=== PATIENT | male | born 1955 | race Two or more races ===

== ENCOUNTER 2020-01-28 22:03 | Inpatient (IN) | payer BC, MEDICAID ==
[~2020-01-28] VITALS: Ht 182.9 cm; Wt 107.9 kg
[~2020-01-28 22:03] MED LIST: AMIO200T33; ESCI20TA OR; IBUP800T24 OR; LOSA-69; METF-370 OR; METO25TA5; SIMV80TA73 OR; TIMO0.5S32 OP
[2020-01-28] MEDS ORDERED: IOHEXOL 350 MG/ML 100ML IJ ONE ×2 (22:37→22:38)
[2020-01-28] MEDS ORDERED: LIDOCAINE 2%HCL (LOCAL ANESTH.) INJ 20ML MDV ONE (22:37)
[2020-01-28] MEDS ORDERED: ANGIOMAX 250 MG VIAL IV ONE ×2 (22:46→23:53)
[2020-01-28] MEDS ORDERED: HEPARIN SODIUM (PORCINE) 5000 UNITS/ML 1ML VIAL SC ONE (22:46)
[2020-01-28] MEDS ORDERED: MIDAZOLAM HCL 1MG/1ML-2 ML VIAL IV ONE (22:47)
[2020-01-28] MEDS ORDERED: SODIUM CHLORIDE 0.9% IV ONE ×2 (22:47→23:53)
[2020-01-28] MEDS ORDERED: fentaNYL CITRATE 100 MCG/2 ML VL IV ONE (22:47)
[2020-01-28] MEDS ORDERED: niCARdipine 25 MG/10 ML VIAL IV ONE (23:30)
[2020-01-28] MEDS ORDERED: EPTIFIBATIDE INJ (2MG/ML) 10ML VIAL IV ONE (23:41)
[2020-01-28] MEDS ORDERED: ADENOSINE 12 MG/4 ML INJ IV ONE (23:48)
[2020-01-28] MEDS ORDERED: TICAGRELOR 90 MG TAB PO ONE (23:53)
[2020-01-29] VITALS (12 sets, daily range): BP systolic 100–134; BP diastolic 60–79
[2020-01-29] MEDS ORDERED: NITROGLYCERIN 0.4 MG SL TAB SL PRN (01:00)
[2020-01-29] MEDS ORDERED: DEXTROSE (50%) 50ML SYRG IV PRN (01:00)
[2020-01-29] MEDS ORDERED: ACETAMINOPHEN 500 MG TAB PO PRN (01:00)
[2020-01-29] MEDS ORDERED: HYDROcodone-ACET 5/325MG TAB PO PRN (01:00)
[2020-01-29] MEDS ORDERED: MORPHINE SULF INJ 2 MG/ML SYRINGE 1ML IV PRN (01:00)
[2020-01-29] MEDS ORDERED: THIAMINE 100mg/ml INJ (200mg/2ml VIAL) IV ONE (01:30)
[2020-01-29 03:05] LABS: Basophils # (auto) 0 10 ^3/uL (0-0.2); Basophils % (auto) 0.1 % (0.0-2.0); Eosinophils # (auto) 0 10 ^3/uL (0-0.8); Eosinophils % (auto) 0.1 % (0.0-7.0); Lymphocytes # (auto) 0.7 10 ^3/uL (0.4-5.4); Mean Corpuscular Hemoglobin 31.1 pg (28.0-32.0); Mean Corpuscular Hgb Conc. 33.3 g/dL (32.0-36.0); Mean Corpuscular Volume 93.3 fL (80.0-100.0); Monocytes # (auto) 0.4 10 ^3/uL (0-1.3); Monocytes % (auto) 4.5 % (0.0-12.0); Neutrophils # (auto) 8.5 10 ^3/uL (1.6-8.6); Neutrophils % (auto) 88.3 % (37.0-80.0); Nucleated Red Blood Cells % 0.1 %; Platelet Count (auto) 298 10^3/uL (140-450); Red Blood Cells 4.18 10^6/uL (4.5-5.90); Red Cell Distribution Width 13.3 % (11.8-14.3); White Blood Cell 9.7 10^3/uL (4.4-10.8)
[2020-01-29 03:22] LABS: INR 1.59 (0.9-1.15); Partial Thromboplastin Time 62.1 sec (23.0-31.2)
[2020-01-29] MEDS: InsuLIN REG 1unit/0.01ml Soln (100units/ml) SC SCH ×4 (06:26→22:18)
[2020-01-29] MEDS: TIMOLOL MAL 0.5% OPTH(EYE) SOL 5ML OP SCH (06:33)
[2020-01-29] MEDS: ACCU-CHEK COMFORT CURVE STRIP VI SCH ×4 (06:33→22:17)
[2020-01-29 07:44] LABS: Basophils # (auto) 0 10 ^3/uL (0-0.2); Basophils % (auto) 0.1 % (0.0-2.0); Eosinophils # (auto) 0 10 ^3/uL (0-0.8); Eosinophils % (auto) 0.3 % (0.0-7.0); Hematocrit 37.4 % (41.0-53.0); Hemoglobin 12.3 g/dL (13.5-17.5); Lymphocytes # (auto) 0.7 10 ^3/uL (0.4-5.4); Lymphocytes % (auto) 7.8 % (10.0-50.0); Mean Corpuscular Hemoglobin 30.7 pg (28.0-32.0); Mean Corpuscular Hgb Conc. 32.9 g/dL (32.0-36.0); Mean Corpuscular Volume 93.5 fL (80.0-100.0); Monocytes # (auto) 0.4 10 ^3/uL (0-1.3); Monocytes % (auto) 5.2 % (0.0-12.0); Neutrophils # (auto) 7.3 10 ^3/uL (1.6-8.6); Neutrophils % (auto) 86.6 % (37.0-80.0); Platelet Count (auto) 272 10^3/uL (140-450); Red Cell Distribution Width 13.3 % (11.8-14.3); White Blood Cell 8.4 10^3/uL (4.4-10.8)
[2020-01-29 08:08] LABS: Potassium 3.6 mmol/L (3.5-5.1)
[2020-01-29 08:13] LABS: BUN/Creatinine Ratio 36.5; Calcium 7.9 mg/dL (8.5-10.1)
[2020-01-29] MEDS ORDERED: METOPROLOL TARTRATE 25 MG TAB PO SCH (10:00)
[2020-01-29] MEDS ORDERED: LOSARTAN POTASSIUM 50 MG TAB PO SCH (10:00)
[2020-01-29] MEDS: ASPirin 81 mg TAB PO SCH (11:02)
[2020-01-29] MEDS: AMIODARONE HCL 200 MG TAB PEG SCH (11:03)
[2020-01-29] MEDS: TICAGRELOR 90 MG TAB PO SCH ×2 (11:05→22:15)
[2020-01-29] MEDS: DOXYCYCLINE 100MG/250ML 250 ML IV SCH (20:24)
[2020-01-29] MEDS: ENOXAPARIN SOD 120 MG/0.8 ML SYRINGE SC SCH (20:25)
[2020-01-29] MEDS: ASCORBIC ACID 500 MG TAB PO SCH (20:46)
[2020-01-29] MEDS: ZINC SULFATE 220mg CAP or TAB PO SCH (20:46)
[2020-01-29] MEDS: DexAMETHasone SOD PHOS 10MG/1ML VIAL INJ IV SCH (20:46)
[2020-01-29] MEDS ORDERED: ATORVASTATIN 20 MG TAB PO SCH (22:00)
[2020-01-29] MEDS: ATORVASTATIN 20 MG TAB PO SCH (22:14)
[2020-01-29] MEDS: POTASSIUM CHLORIDE 8 MEQ TAB PO SCH (22:15)
[2020-01-29] MEDS: FUROSEMIDE 20 MG/2 ML VIAL IV SCH (22:16)
[2020-01-29] MEDS: CARVEDILOL 3.125 MG TAB PO SCH (22:16)
[2020-01-30 05:00] VITALS: BP 90/56
[2020-01-30] MEDS: POTASSIUM CHLORIDE 8 MEQ TAB PO SCH ×3 (06:01→22:27)
[2020-01-30] MEDS: ACCU-CHEK COMFORT CURVE STRIP VI SCH ×4 (06:25→22:28)
[2020-01-30] MEDS: DOXYCYCLINE 100MG/250ML 250 ML IV SCH ×2 (06:36→18:29)
[2020-01-30] MEDS: LEVOTHYROXINE SODIUM 25 MCG TAB PO SCH (06:40)
[2020-01-30] MEDS: InsuLIN REG 1unit/0.01ml Soln (100units/ml) SC SCH ×4 (06:44→22:31)
[2020-01-30 06:47] LABS: Basophils # (auto) 0 10 ^3/uL (0-0.2); Basophils % (auto) 0.1 % (0.0-2.0); Eosinophils # (auto) 0 10 ^3/uL (0-0.8); Hematocrit 36.3 % (41.0-53.0); Hemoglobin 11.8 g/dL (13.5-17.5); Lymphocytes # (auto) 0.4 10 ^3/uL (0.4-5.4); Lymphocytes % (auto) 4.8 % (10.0-50.0); Mean Corpuscular Hemoglobin 30.2 pg (28.0-32.0); Mean Corpuscular Hgb Conc. 32.6 g/dL (32.0-36.0); Mean Corpuscular Volume 92.6 fL (80.0-100.0); Monocytes # (auto) 0.3 10 ^3/uL (0-1.3); Neutrophils # (auto) 7.8 10 ^3/uL (1.6-8.6); Neutrophils % (auto) 92.1 % (37.0-80.0); Nucleated Red Blood Cells % 0.1 %; Platelet Count (auto) 323 10^3/uL (140-450); Red Blood Cells 3.92 10^6/uL (4.5-5.90); Red Cell Distribution Width 13.4 % (11.8-14.3); White Blood Cell 8.5 10^3/uL (4.4-10.8)
[2020-01-30] MEDS: ENOXAPARIN SOD 120 MG/0.8 ML SYRINGE SC SCH ×2 (06:54→18:29)
[2020-01-30] MEDS: TIMOLOL MAL 0.5% OPTH(EYE) SOL 5ML OP SCH (06:59)
[2020-01-30 07:32] LABS: Albumin 2.1 g/dL (3.4-5.0); BUN/Creatinine Ratio 27.7; CRP High Sensitivity 18.3 mg/dL (< 0.3); Calcium 8.4 mg/dL (8.5-10.1); Total Protein 6.4 g/dL (6.4-8.2)
[2020-01-30 09:00] VITALS: BP 97/63
[2020-01-30] MEDS: DexAMETHasone SOD PHOS 10MG/1ML VIAL INJ IV SCH (10:33)
[2020-01-30] MEDS: FUROSEMIDE 20 MG/2 ML VIAL IV SCH ×2 (10:33→22:24)
[2020-01-30] MEDS: ASPirin 81 mg TAB PO SCH (10:34)
[2020-01-30] MEDS: ZINC SULFATE 220mg CAP or TAB PO SCH (10:34)
[2020-01-30] MEDS: AMIODARONE HCL 200 MG TAB PEG SCH (10:34)
[2020-01-30] MEDS: CHOLECALCIFEROL (VITD3) 2,000 UNIT CAP PO SCH (10:35)
[2020-01-30] MEDS: CARVEDILOL 3.125 MG TAB PO SCH ×2 (10:35→22:25)
[2020-01-30] MEDS: SACUBITRIL-VALSARTAN 24mg/26mg TAB PO SCH ×2 (10:35→22:26)
[2020-01-30] MEDS: TICAGRELOR 90 MG TAB PO SCH ×2 (10:36→22:24)
[2020-01-30] MEDS: ASCORBIC ACID 500 MG TAB PO SCH (10:36)
[2020-01-30 17:00] VITALS: BP 98/59
[2020-01-30 20:00] VITALS: BP 111/64
[2020-01-30 22:00] VITALS: BP 111/64
[2020-01-30] MEDS: ATORVASTATIN 20 MG TAB PO SCH (22:27)
[2020-01-31 05:00] VITALS: BP 102/65
[2020-01-31] MEDS: ACCU-CHEK COMFORT CURVE STRIP VI SCH ×4 (06:38→21:28)
[2020-01-31] MEDS: TIMOLOL MAL 0.5% OPTH(EYE) SOL 5ML OP SCH (06:38)
[2020-01-31] MEDS: POTASSIUM CHLORIDE 8 MEQ TAB PO SCH ×3 (06:38→21:28)
[2020-01-31] MEDS: ENOXAPARIN SOD 120 MG/0.8 ML SYRINGE SC SCH ×2 (06:39→18:50)
[2020-01-31] MEDS: LEVOTHYROXINE SODIUM 25 MCG TAB PO SCH (06:39)
[2020-01-31] MEDS: DOXYCYCLINE 100MG/250ML 250 ML IV SCH ×2 (06:39→18:50)
[2020-01-31] MEDS: InsuLIN REG 1unit/0.01ml Soln (100units/ml) SC SCH ×4 (06:43→21:29)
[2020-01-31 06:54] LABS: Basophils # (auto) 0 10 ^3/uL (0-0.2); Basophils % (auto) 0.1 % (0.0-2.0); Eosinophils # (auto) 0 10 ^3/uL (0-0.8); Hematocrit 36.3 % (41.0-53.0); Lymphocytes # (auto) 0.8 10 ^3/uL (0.4-5.4); Lymphocytes % (auto) 5.7 % (10.0-50.0); Mean Corpuscular Hemoglobin 30.4 pg (28.0-32.0); Mean Corpuscular Hgb Conc. 32.9 g/dL (32.0-36.0); Mean Corpuscular Volume 92.4 fL (80.0-100.0); Monocytes # (auto) 0.6 10 ^3/uL (0-1.3); Monocytes % (auto) 4.4 % (0.0-12.0); Neutrophils % (auto) 89.8 % (37.0-80.0); Platelet Count (auto) 428 10^3/uL (140-450); Red Blood Cells 3.93 10^6/uL (4.5-5.90); Red Cell Distribution Width 13.7 % (11.8-14.3); White Blood Cell 13.4 10^3/uL (4.4-10.8)
[2020-01-31 07:11] LABS: Calcium 8.2 mg/dL (8.5-10.1); Potassium 3.7 mmol/L (3.5-5.1)
[2020-01-31 08:00] VITALS: BP 110/63
[2020-01-31] MEDS ORDERED: REMDESIVIR PER PHARMACY IV SCH (08:00)
[2020-01-31 09:00] VITALS: BP 109/68
[2020-01-31] MEDS: DexAMETHasone SOD PHOS 10MG/1ML VIAL INJ IV SCH (10:09)
[2020-01-31] MEDS: FUROSEMIDE 20 MG/2 ML VIAL IV SCH ×2 (10:09→18:49)
[2020-01-31] MEDS: AMIODARONE HCL 200 MG TAB PEG SCH (10:10)
[2020-01-31] MEDS: CARVEDILOL 3.125 MG TAB PO SCH ×2 (10:10→21:28)
[2020-01-31] MEDS: ASPirin 81 mg TAB PO SCH (10:10)
[2020-01-31] MEDS: TICAGRELOR 90 MG TAB PO SCH ×2 (10:10→21:27)
[2020-01-31] MEDS: ZINC SULFATE 220mg CAP or TAB PO SCH (10:10)
[2020-01-31] MEDS: ASCORBIC ACID 500 MG TAB PO SCH (10:11)
[2020-01-31] MEDS: CHOLECALCIFEROL (VITD3) 2,000 UNIT CAP PO SCH (10:11)
[2020-01-31] MEDS: SACUBITRIL-VALSARTAN 24mg/26mg TAB PO SCH ×2 (10:11→21:28)
[2020-01-31 13:00] VITALS: BP 95/60
[2020-01-31 17:00] VITALS: BP 113/68
[2020-01-31] MEDS ORDERED: REMDESIVIR 200 MG in NS 210ml LOADING DOSE ADULT IV ONE (17:00)
[2020-01-31] MEDS: ATORVASTATIN 20 MG TAB PO SCH (21:28)
[2020-01-31 22:00] VITALS: BP 113/65
[2020-02-01 05:00] VITALS: BP 106/67
[2020-02-01 05:33] LABS: Basophils # (auto) 0 10 ^3/uL (0-0.2); Basophils % (auto) 0.1 % (0.0-2.0); Eosinophils # (auto) 0 10 ^3/uL (0-0.8); Hematocrit 36.7 % (41.0-53.0); Hemoglobin 11.8 g/dL (13.5-17.5); Lymphocytes # (auto) 0.6 10 ^3/uL (0.4-5.4); Lymphocytes % (auto) 5.3 % (10.0-50.0); Mean Corpuscular Hgb Conc. 32.1 g/dL (32.0-36.0); Mean Corpuscular Volume 93.4 fL (80.0-100.0); Monocytes # (auto) 0.6 10 ^3/uL (0-1.3); Monocytes % (auto) 5.3 % (0.0-12.0); Neutrophils # (auto) 10.1 10 ^3/uL (1.6-8.6); Neutrophils % (auto) 89.3 % (37.0-80.0); Platelet Count (auto) 427 10^3/uL (140-450); Red Blood Cells 3.93 10^6/uL (4.5-5.90); Red Cell Distribution Width 13.6 % (11.8-14.3); White Blood Cell 11.3 10^3/uL (4.4-10.8)
[2020-02-01 05:53] LABS: Potassium 3.9 mmol/L (3.5-5.1)
[2020-02-01] MEDS: FUROSEMIDE 20 MG/2 ML VIAL IV SCH ×2 (06:00→19:23)
[2020-02-01 06:07] LABS: Albumin 2.3 g/dL (3.4-5.0); Bilirubin, Total 0.8 mg/dL (0.2-1.0); CRP High Sensitivity 4.33 mg/dL (< 0.3); Calcium 8.1 mg/dL (8.5-10.1); Magnesium 2.2 mg/dL (1.6-2.6); Total Protein 6.4 g/dL (6.4-8.2)
[2020-02-01] MEDS: TIMOLOL MAL 0.5% OPTH(EYE) SOL 5ML OP SCH (06:15)
[2020-02-01] MEDS: POTASSIUM CHLORIDE 8 MEQ TAB PO SCH ×3 (06:27→21:48)
[2020-02-01] MEDS: DOXYCYCLINE 100MG/250ML 250 ML IV SCH ×2 (06:27→19:23)
[2020-02-01] MEDS: ACCU-CHEK COMFORT CURVE STRIP VI SCH ×4 (06:28→21:48)
[2020-02-01] MEDS: LEVOTHYROXINE SODIUM 25 MCG TAB PO SCH (06:28)
[2020-02-01] MEDS: ENOXAPARIN SOD 120 MG/0.8 ML SYRINGE SC SCH ×2 (06:28→19:22)
[2020-02-01] MEDS: InsuLIN REG 1unit/0.01ml Soln (100units/ml) SC SCH ×4 (06:29→22:08)
[2020-02-01 09:24] VITALS: BP 106/64
[2020-02-01] MEDS: CARVEDILOL 12.5 MG TAB PO SCH ×2 (11:00→21:47)
[2020-02-01] MEDS: PANTOPRAZOLE 40 MG/10 ML VIAL INJ IV SCH (11:23)
[2020-02-01] MEDS: TICAGRELOR 90 MG TAB PO SCH ×2 (11:23→21:47)
[2020-02-01] MEDS: DexAMETHasone SOD PHOS 10MG/1ML VIAL INJ IV SCH (11:23)
[2020-02-01] MEDS: CHOLECALCIFEROL (VITD3) 2,000 UNIT CAP PO SCH (11:24)
[2020-02-01] MEDS: ZINC SULFATE 220mg CAP or TAB PO SCH (11:25)
[2020-02-01] MEDS: ASPirin 81 mg TAB PO SCH (11:25)
[2020-02-01] MEDS: ASCORBIC ACID 500 MG TAB PO SCH (11:25)
[2020-02-01] MEDS: AMIODARONE HCL 200 MG TAB PEG SCH (11:25)
[2020-02-01] MEDS: SACUBITRIL-VALSARTAN 24mg/26mg TAB PO SCH ×2 (11:26→21:48)
[2020-02-01 12:56] VITALS: BP 98/67
[2020-02-01 16:38] VITALS: BP 109/70
[2020-02-01] MEDS: REMDESIVIR 100mg in NS 230ml DAILYx4DAYS (NO VENT) IV SCH (17:13)
[2020-02-01] MEDS: ATORVASTATIN 20 MG TAB PO SCH (21:48)
[2020-02-01 22:28] VITALS: BP 113/67
[2020-02-02 05:00] VITALS: BP 127/68
[2020-02-02] MEDS: DOXYCYCLINE 100MG/250ML 250 ML IV SCH ×2 (06:27→18:52)
[2020-02-02] MEDS: FUROSEMIDE 20 MG/2 ML VIAL IV SCH ×2 (06:27→18:51)
[2020-02-02] MEDS: POTASSIUM CHLORIDE 8 MEQ TAB PO SCH ×3 (06:27→22:18)
[2020-02-02] MEDS: ENOXAPARIN SOD 120 MG/0.8 ML SYRINGE SC SCH ×2 (06:28→18:52)
[2020-02-02] MEDS: LEVOTHYROXINE SODIUM 25 MCG TAB PO SCH (06:28)
[2020-02-02] MEDS: ACCU-CHEK COMFORT CURVE STRIP VI SCH ×4 (06:28→22:20)
[2020-02-02] MEDS: InsuLIN REG 1unit/0.01ml Soln (100units/ml) SC SCH ×4 (06:33→22:20)
[2020-02-02] MEDS: TIMOLOL MAL 0.5% OPTH(EYE) SOL 5ML OP SCH (06:47)
[2020-02-02 07:01] LABS: Basophils # (auto) 0 10 ^3/uL (0-0.2); Basophils % (auto) 0.1 % (0.0-2.0); Eosinophils # (auto) 0 10 ^3/uL (0-0.8); Eosinophils % (auto) 0.1 % (0.0-7.0); Hematocrit 36.2 % (41.0-53.0); Hemoglobin 12.1 g/dL (13.5-17.5); Lymphocytes # (auto) 0.6 10 ^3/uL (0.4-5.4); Mean Corpuscular Hemoglobin 30.9 pg (28.0-32.0); Mean Corpuscular Hgb Conc. 33.4 g/dL (32.0-36.0); Mean Corpuscular Volume 92.7 fL (80.0-100.0); Monocytes # (auto) 0.5 10 ^3/uL (0-1.3); Monocytes % (auto) 4.9 % (0.0-12.0); Neutrophils # (auto) 8.5 10 ^3/uL (1.6-8.6); Neutrophils % (auto) 88.9 % (37.0-80.0); Platelet Count (auto) 441 10^3/uL (140-450); Red Cell Distribution Width 13.2 % (11.8-14.3); White Blood Cell 9.6 10^3/uL (4.4-10.8)
[2020-02-02 08:42] LABS: BUN/Creatinine Ratio 30.8; Calcium 8.1 mg/dL (8.5-10.1); Magnesium 2.5 mg/dL (1.6-2.6); Potassium 4.8 mmol/L (3.5-5.1)
[2020-02-02 08:57] LABS: CRP High Sensitivity 4.43 mg/dL (< 0.3)
[2020-02-02 09:00] VITALS: BP 99/56
[2020-02-02] MEDS: PANTOPRAZOLE 40 MG/10 ML VIAL INJ IV SCH (10:54)
[2020-02-02] MEDS: DexAMETHasone SOD PHOS 10MG/1ML VIAL INJ IV SCH (10:54)
[2020-02-02] MEDS: AMIODARONE HCL 200 MG TAB PEG SCH (10:56)
[2020-02-02] MEDS: TICAGRELOR 90 MG TAB PO SCH ×2 (10:58→22:17)
[2020-02-02] MEDS: ZINC SULFATE 220mg CAP or TAB PO SCH (10:58)
[2020-02-02] MEDS: SACUBITRIL-VALSARTAN 24mg/26mg TAB PO SCH ×2 (10:59→22:18)
[2020-02-02] MEDS: CHOLECALCIFEROL (VITD3) 2,000 UNIT CAP PO SCH (10:59)
[2020-02-02] MEDS: ASCORBIC ACID 500 MG TAB PO SCH (10:59)
[2020-02-02] MEDS: ASPirin 81 mg TAB PO SCH (11:00)
[2020-02-02] MEDS: CARVEDILOL 12.5 MG TAB PO SCH ×2 (11:00→22:19)
[2020-02-02 13:00] VITALS: BP 96/59
[2020-02-02 17:00] VITALS: BP 97/60
[2020-02-02] MEDS: REMDESIVIR 100mg in NS 230ml DAILYx4DAYS (NO VENT) IV SCH (17:29)
[2020-02-02 22:00] VITALS: BP 107/66
[2020-02-02] MEDS: ATORVASTATIN 20 MG TAB PO SCH (22:17)
[2020-02-03] VITALS (10 sets, daily range): BP systolic 90–110; BP diastolic 52–64
[2020-02-03] MEDS: DOXYCYCLINE 100MG/250ML 250 ML IV SCH ×2 (05:52→19:20)
[2020-02-03] MEDS: ENOXAPARIN SOD 120 MG/0.8 ML SYRINGE SC SCH ×2 (05:52→19:20)
[2020-02-03] MEDS: LEVOTHYROXINE SODIUM 25 MCG TAB PO SCH (05:53)
[2020-02-03] MEDS: POTASSIUM CHLORIDE 8 MEQ TAB PO SCH ×3 (05:54→23:04)
[2020-02-03] MEDS: ACCU-CHEK COMFORT CURVE STRIP VI SCH ×4 (05:54→22:58)
[2020-02-03] MEDS: TIMOLOL MAL 0.5% OPTH(EYE) SOL 5ML OP SCH (05:54)
[2020-02-03] MEDS: FUROSEMIDE 20 MG/2 ML VIAL IV SCH ×2 (05:54→18:00)
[2020-02-03] MEDS: InsuLIN REG 1unit/0.01ml Soln (100units/ml) SC SCH ×4 (06:15→23:01)
[2020-02-03 07:45] LABS: Albumin 1.8 g/dL (3.4-5.0); Magnesium 2.9 mg/dL (1.6-2.6); Potassium 4.3 mmol/L (3.5-5.1)
[2020-02-03 07:48] LABS: Bilirubin, Total 0.9 mg/dL (0.2-1.0); Total Protein 6.4 g/dL (6.4-8.2)
[2020-02-03] MEDS: SACUBITRIL-VALSARTAN 24mg/26mg TAB PO SCH ×2 (10:00→23:04)
[2020-02-03] MEDS: CARVEDILOL 12.5 MG TAB PO SCH ×2 (10:00→22:00)
[2020-02-03] MEDS: DexAMETHasone SOD PHOS 10MG/1ML VIAL INJ IV SCH (10:01)
[2020-02-03] MEDS: TICAGRELOR 90 MG TAB PO SCH ×2 (10:02→23:05)
[2020-02-03] MEDS: PANTOPRAZOLE 40 MG/10 ML VIAL INJ IV SCH (10:02)
[2020-02-03] MEDS: ZINC SULFATE 220mg CAP or TAB PO SCH (10:03)
[2020-02-03] MEDS: ASCORBIC ACID 500 MG TAB PO SCH (10:03)
[2020-02-03] MEDS: ASPirin 81 mg TAB PO SCH (10:03)
[2020-02-03] MEDS: AMIODARONE HCL 200 MG TAB PEG SCH (10:03)
[2020-02-03 10:52] LABS: Basophils # (auto) 0 10 ^3/uL (0-0.2); Lymphocytes # (auto) 0.9 10 ^3/uL (0.4-5.4); Monocytes # (auto) 0.6 10 ^3/uL (0-1.3)
[2020-02-03 10:54] LABS: Basophils % (auto) 0.1 % (0.0-2.0); Eosinophils # (auto) 0 10 ^3/uL (0-0.8); Eosinophils % (auto) 0.4 % (0.0-7.0); Hematocrit 38.6 % (41.0-53.0); Hemoglobin 12.6 g/dL (13.5-17.5); Mean Corpuscular Hemoglobin 30.8 pg (28.0-32.0); Mean Corpuscular Hgb Conc. 32.7 g/dL (32.0-36.0); Mean Corpuscular Volume 94.1 fL (80.0-100.0); Monocytes % (auto) 5.7 % (0.0-12.0); Neutrophils # (auto) 8.6 10 ^3/uL (1.6-8.6); Neutrophils % (auto) 84.8 % (37.0-80.0); Platelet Count (auto) 466 10^3/uL (140-450); Red Cell Distribution Width 13.5 % (11.8-14.3); White Blood Cell 10.1 10^3/uL (4.4-10.8)
[2020-02-03] MEDS: CHOLECALCIFEROL (VITD3) 2,000 UNIT CAP PO SCH (11:00)
[2020-02-03] MEDS: REMDESIVIR 100mg in NS 230ml DAILYx4DAYS (NO VENT) IV SCH (18:00)
[2020-02-03] MEDS: ATORVASTATIN 20 MG TAB PO SCH (23:04)
[2020-02-04 05:00] VITALS: BP 111/73
[2020-02-04] MEDS: POTASSIUM CHLORIDE 8 MEQ TAB PO SCH ×3 (06:04→22:42)
[2020-02-04] MEDS: FUROSEMIDE 20 MG/2 ML VIAL IV SCH ×2 (06:04→18:00)
[2020-02-04] MEDS: DOXYCYCLINE 100MG/250ML 250 ML IV SCH ×2 (06:31→21:00)
[2020-02-04] MEDS: ENOXAPARIN SOD 120 MG/0.8 ML SYRINGE SC SCH (06:32)
[2020-02-04] MEDS: ACCU-CHEK COMFORT CURVE STRIP VI SCH ×4 (06:32→22:42)
[2020-02-04] MEDS: LEVOTHYROXINE SODIUM 25 MCG TAB PO SCH (06:32)
[2020-02-04] MEDS: InsuLIN REG 1unit/0.01ml Soln (100units/ml) SC SCH ×4 (06:37→22:46)
[2020-02-04] MEDS: TIMOLOL MAL 0.5% OPTH(EYE) SOL 5ML OP SCH (06:38)
[2020-02-04 07:45] LABS: Basophils # (auto) 0 10 ^3/uL (0-0.2); Basophils % (auto) 0.1 % (0.0-2.0); Eosinophils # (auto) 0 10 ^3/uL (0-0.8); Eosinophils % (auto) 0.3 % (0.0-7.0); Hematocrit 40.5 % (41.0-53.0); Lymphocytes # (auto) 0.6 10 ^3/uL (0.4-5.4); Lymphocytes % (auto) 7.8 % (10.0-50.0); Mean Corpuscular Hemoglobin 30.3 pg (28.0-32.0); Mean Corpuscular Hgb Conc. 32.2 g/dL (32.0-36.0); Mean Corpuscular Volume 94.1 fL (80.0-100.0); Monocytes # (auto) 0.5 10 ^3/uL (0-1.3); Monocytes % (auto) 6.7 % (0.0-12.0); Neutrophils # (auto) 6.9 10 ^3/uL (1.6-8.6); Neutrophils % (auto) 85.1 % (37.0-80.0); Platelet Count (auto) 440 10^3/uL (140-450); Red Cell Distribution Width 13.5 % (11.8-14.3); White Blood Cell 8.1 10^3/uL (4.4-10.8)
[2020-02-04 08:04] LABS: Calcium 8.5 mg/dL (8.5-10.1); Potassium 4.3 mmol/L (3.5-5.1)
[2020-02-04 08:06] LABS: BUN/Creatinine Ratio 23.8
[2020-02-04 08:50] LABS: Magnesium 2.4 mg/dL (1.6-2.6)
[2020-02-04 08:58] LABS: CRP High Sensitivity 1.97 mg/dL (< 0.3)
[2020-02-04 09:00] VITALS: BP 93/55
[2020-02-04] MEDS: SACUBITRIL-VALSARTAN 24mg/26mg TAB PO SCH ×2 (10:00→22:42)
[2020-02-04] MEDS: CARVEDILOL 12.5 MG TAB PO SCH ×2 (10:00→22:41)
[2020-02-04] MEDS: ASCORBIC ACID 500 MG TAB PO SCH (10:15)
[2020-02-04] MEDS: ASPirin 81 mg TAB PO SCH (10:16)
[2020-02-04] MEDS: CHOLECALCIFEROL (VITD3) 2,000 UNIT CAP PO SCH (10:16)
[2020-02-04] MEDS: AMIODARONE HCL 200 MG TAB PEG SCH (10:17)
[2020-02-04] MEDS: ZINC SULFATE 220mg CAP or TAB PO SCH (10:17)
[2020-02-04] MEDS: TICAGRELOR 90 MG TAB PO SCH ×2 (10:17→22:41)
[2020-02-04] MEDS: DexAMETHasone SOD PHOS 10MG/1ML VIAL INJ IV SCH (10:26)
[2020-02-04] MEDS: PANTOPRAZOLE 40 MG/10 ML VIAL INJ IV SCH (10:26)
[2020-02-04 13:00] VITALS: BP 92/51
[2020-02-04 17:00] VITALS: BP 93/53
[2020-02-04] MEDS: REMDESIVIR 100mg in NS 230ml DAILYx4DAYS (NO VENT) IV SCH ×2 (18:12→21:20)
[2020-02-04] MEDS: RIVAROXABAN 20 MG TAB PO SCH (18:13)
[2020-02-04 22:00] VITALS: BP 104/70
[2020-02-04] MEDS: ATORVASTATIN 20 MG TAB PO SCH (22:42)
[2020-02-05 05:00] VITALS: BP 91/56
[2020-02-05 05:39] LABS: Basophils # (auto) 0 10 ^3/uL (0-0.2); Eosinophils # (auto) 0 10 ^3/uL (0-0.8); Eosinophils % (auto) 0.4 % (0.0-7.0); Lymphocytes # (auto) 0.9 10 ^3/uL (0.4-5.4); Mean Corpuscular Hemoglobin 30.8 pg (28.0-32.0); Monocytes # (auto) 0.6 10 ^3/uL (0-1.3); Nucleated Red Blood Cells % 0.1 %
[2020-02-05 05:41] LABS: Basophils % (auto) 0.1 % (0.0-2.0); Hemoglobin 11.9 g/dL (13.5-17.5); Lymphocytes % (auto) 11.6 % (10.0-50.0); Mean Corpuscular Hgb Conc. 32.9 g/dL (32.0-36.0); Mean Corpuscular Volume 93.7 fL (80.0-100.0); Monocytes % (auto) 7.7 % (0.0-12.0); Neutrophils # (auto) 6.5 10 ^3/uL (1.6-8.6); Neutrophils % (auto) 80.2 % (37.0-80.0); Platelet Count (auto) 452 10^3/uL (140-450); Red Blood Cells 3.85 10^6/uL (4.5-5.90); Red Cell Distribution Width 13.5 % (11.8-14.3); White Blood Cell 8.1 10^3/uL (4.4-10.8)
[2020-02-05] MEDS: FUROSEMIDE 20 MG/2 ML VIAL IV SCH ×2 (06:00→17:50)
[2020-02-05 06:15] LABS: BUN/Creatinine Ratio 23.9; CRP High Sensitivity 1.34 mg/dL (< 0.3); Calcium 8.4 mg/dL (8.5-10.1); Magnesium 2.2 mg/dL (1.6-2.6)
[2020-02-05] MEDS: LEVOTHYROXINE SODIUM 25 MCG TAB PO SCH (06:59)
[2020-02-05] MEDS: POTASSIUM CHLORIDE 8 MEQ TAB PO SCH ×3 (06:59→22:15)
[2020-02-05] MEDS: TIMOLOL MAL 0.5% OPTH(EYE) SOL 5ML OP SCH (07:00)
[2020-02-05] MEDS: InsuLIN REG 1unit/0.01ml Soln (100units/ml) SC SCH ×4 (07:00→22:21)
[2020-02-05] MEDS: ACCU-CHEK COMFORT CURVE STRIP VI SCH ×4 (07:00→22:20)
[2020-02-05 09:00] VITALS: BP 97/58
[2020-02-05] MEDS: DOXYCYCLINE 100MG/250ML 250 ML IV SCH ×2 (09:18→20:46)
[2020-02-05] MEDS: CARVEDILOL 12.5 MG TAB PO SCH ×2 (09:42→22:14)
[2020-02-05] MEDS: TICAGRELOR 90 MG TAB PO SCH ×2 (10:00→22:14)
[2020-02-05] MEDS: DexAMETHasone SOD PHOS 10MG/1ML VIAL INJ IV SCH (10:07)
[2020-02-05] MEDS: ASPirin 81 mg TAB PO SCH (10:07)
[2020-02-05] MEDS: AMIODARONE HCL 200 MG TAB PEG SCH (10:07)
[2020-02-05] MEDS: PANTOPRAZOLE 40 MG/10 ML VIAL INJ IV SCH (10:07)
[2020-02-05] MEDS: ZINC SULFATE 220mg CAP or TAB PO SCH (10:07)
[2020-02-05] MEDS: ASCORBIC ACID 500 MG TAB PO SCH (10:08)
[2020-02-05] MEDS: SACUBITRIL-VALSARTAN 24mg/26mg TAB PO SCH ×2 (10:08→22:15)
[2020-02-05] MEDS: CHOLECALCIFEROL (VITD3) 2,000 UNIT CAP PO SCH (10:08)
[2020-02-05 12:33] VITALS: BP 95/56
[2020-02-05 16:50] VITALS: BP 138/78
[2020-02-05] MEDS: RIVAROXABAN 20 MG TAB PO SCH (17:50)
[2020-02-05 22:00] VITALS: BP 129/69
[2020-02-05] MEDS: ATORVASTATIN 20 MG TAB PO SCH (22:15)
[2020-02-06 05:25] VITALS: BP 94/60
[2020-02-06] MEDS: FUROSEMIDE 20 MG/2 ML VIAL IV SCH ×2 (06:00→18:00)
[2020-02-06] MEDS: POTASSIUM CHLORIDE 8 MEQ TAB PO SCH ×3 (06:59→22:37)
[2020-02-06] MEDS: ACCU-CHEK COMFORT CURVE STRIP VI SCH ×4 (06:59→22:37)
[2020-02-06] MEDS: TIMOLOL MAL 0.5% OPTH(EYE) SOL 5ML OP SCH (07:00)
[2020-02-06] MEDS: InsuLIN REG 1unit/0.01ml Soln (100units/ml) SC SCH ×4 (07:06→22:44)
[2020-02-06] MEDS: LEVOTHYROXINE SODIUM 25 MCG TAB PO SCH (07:07)
[2020-02-06 09:00] VITALS: BP 101/62
[2020-02-06] MEDS: DexAMETHasone SOD PHOS 10MG/1ML VIAL INJ IV SCH (09:56)
[2020-02-06] MEDS: DOXYCYCLINE 100MG/250ML 250 ML IV SCH ×2 (09:56→21:07)
[2020-02-06] MEDS: CARVEDILOL 12.5 MG TAB PO SCH ×2 (09:57→22:00)
[2020-02-06] MEDS: ZINC SULFATE 220mg CAP or TAB PO SCH (09:57)
[2020-02-06] MEDS: TICAGRELOR 90 MG TAB PO SCH ×2 (09:57→22:34)
[2020-02-06] MEDS: AMIODARONE HCL 200 MG TAB PEG SCH (09:57)
[2020-02-06] MEDS: PANTOPRAZOLE 40 MG/10 ML VIAL INJ IV SCH (09:57)
[2020-02-06] MEDS: ASPirin 81 mg TAB PO SCH (09:57)
[2020-02-06] MEDS: SACUBITRIL-VALSARTAN 24mg/26mg TAB PO SCH ×2 (09:58→22:37)
[2020-02-06] MEDS: CHOLECALCIFEROL (VITD3) 2,000 UNIT CAP PO SCH (09:58)
[2020-02-06] MEDS: ASCORBIC ACID 500 MG TAB PO SCH (09:58)
[2020-02-06] MEDS ORDERED: TICA90TA PO (12:38)
[2020-02-06] MEDS ORDERED: DOXY-332 PO (12:38)
[2020-02-06] MEDS ORDERED: AMIO200T4 PEG (12:38)
[2020-02-06] MEDS ORDERED: LEV25T PO (12:38)
[2020-02-06] MEDS ORDERED: ATOR20TA50 PO (12:38)
[2020-02-06] MEDS ORDERED: NITR0.4S29 SL (12:38)
[2020-02-06] MEDS ORDERED: SACU1TAB PO (12:38)
[2020-02-06] MEDS ORDERED: CAR125T PO (12:38)
[2020-02-06] MEDS ORDERED: ASPI81CH59 PO (12:38)
[2020-02-06] MEDS ORDERED: CHOL1CAP47 PO (12:38)
[2020-02-06] MEDS ORDERED: RIV20T PO (12:38)
[2020-02-06] MEDS ORDERED: ASCO500T11 PO (12:38)
[2020-02-06 13:00] VITALS: BP 106/60
[2020-02-06 17:41] VITALS: BP 96/46
[2020-02-06] MEDS: RIVAROXABAN 20 MG TAB PO SCH (18:17)
[2020-02-06 20:18] VITALS: BP 106/60
[2020-02-06 22:00] VITALS: BP 95/52
[2020-02-06] MEDS: ATORVASTATIN 20 MG TAB PO SCH (22:37)
== END 2020-02-07 00:30 | disposition home or self-care (01) | DRG 246 ==
LOC: EDBD 22:03 → ER 22:03 → TELE-CENTR 22:04 → ER 23:05
PROVIDERS: ADMIT Specialist; ATTEND Specialist
PROC: 02703ZZ Dilation of Coronary Artery, One Artery, Percutaneous Approach (ICD-10-PCS; principal; 2020-01-29)
PROC: 02C03ZZ Extirpation of Matter from Coronary Artery, One Artery, Percutaneous Approach (ICD-10-PCS; 2020-01-29)
PROC: 027034Z Dilation of Coronary Artery, One Artery with Drug-eluting Intraluminal Device, Percutaneous Approach (ICD-10-PCS; 2020-01-29)
PROC: B2111ZZ Fluoroscopy of Multiple Coronary Arteries using Low Osmolar Contrast (ICD-10-PCS; 2020-01-29)
PROC: B41C1ZZ Fluoroscopy of Pelvic Arteries using Low Osmolar Contrast (ICD-10-PCS; 2020-01-29)
PROC: 06HM33Z Insertion of Infusion Device into Right Femoral Vein, Percutaneous Approach (ICD-10-PCS; 2020-01-29)
PROC: 04HK33Z Insertion of Infusion Device into Right Femoral Artery, Percutaneous Approach (ICD-10-PCS; 2020-01-29)
PROC: B5131ZZ Fluoroscopy of Right Jugular Veins using Low Osmolar Contrast (ICD-10-PCS; 2020-01-29)
PROC: 4A023N7 Measurement of Cardiac Sampling and Pressure, Left Heart, Percutaneous Approach (ICD-10-PCS; 2020-01-29)
PROC: XW033E5 Introduction of Remdesivir Anti-infective into Peripheral Vein, Percutaneous Approach, New Technology Group 5 (ICD-10-PCS; 2020-01-31)
PROC: 4B02XTZ Measurement of Cardiac Defibrillator, External Approach (ICD-10-PCS; 2020-01-31)
PROC: XW13325 Transfusion of Convalescent Plasma (Nonautologous) into Peripheral Vein, Percutaneous Approach, New Technology Group 5 (ICD-10-PCS; 2020-02-03)
DX: I21.19 ST elevation (STEMI) myocardial infarction involving other coronary artery of inferior wall (principal); J12.89 Other viral pneumonia; U07.1 COVID-19; J96.20 Acute and chronic respiratory failure, unspecified whether with hypoxia or hypercapnia; I50.32 Chronic diastolic (congestive) heart failure; J98.11 Atelectasis; I82.432 Acute embolism and thrombosis of left popliteal vein; I42.8 Other cardiomyopathies; D68.69 Other thrombophilia; E11.40 Type 2 diabetes mellitus with diabetic neuropathy, unspecified; E78.5 Hyperlipidemia, unspecified; E66.01 Morbid (severe) obesity due to excess calories; I11.0 Hypertensive heart disease with heart failure; I25.10 Atherosclerotic heart disease of native coronary artery without angina pectoris; I48.91 Unspecified atrial fibrillation; I50.9 Heart failure, unspecified; Z68.34 Body mass index [BMI] 34.0-34.9, adult; F32.9 Major depressive disorder, single episode, unspecified; Z79.01 Long term (current) use of anticoagulants; Z88.0 Allergy status to penicillin; Z79.02 Long term (current) use of antithrombotics/antiplatelets; Z79.84 Long term (current) use of oral hypoglycemic drugs; Z82.5 Family history of asthma and other chronic lower respiratory diseases; Z90.49 Acquired absence of other specified parts of digestive tract; Z87.891 Personal history of nicotine dependence
CPT/HCPCS: 36415; 36600; 71045; 71250; 75710; 80048; 80053; 82728; 82805; 82962; 83615; 83735; 83880; 84484; 85025; 85379; 85610; 85730; 86141; 86850; 86900; 86901; 92920; 92933; 93005; 93306; 93454; 93970; 97163; 97530; 99152; 99153; 99291; C9113; G0378; J0153; J1100; J1815; J2250; J3490